=== PATIENT | female | born 1970 | race American Indian/Alaskan Native ===

== ENCOUNTER 2017-08-17 12:47 | Outpatient (CLI) | payer BC ==
--- NOTE | 2017-08-17 16:04 | Ultrasound Report ---
LEFT BREAST ULTRASOUND: 08/17/17 12:47:00 CLINICAL: The patient presented for an ultrasound guided biopsy of the lesion described to be at 3 o'clock 8 cm from the nipple. It was identified [facility] on 08/05/17 and I have those images for comparison. FINDINGS: Ultrasoundof the left breast demonstrated no mass, cyst or shadowing to correlate with the lesion described on the recent ultrasound at [facility]. The breast was scanned from 12 o'clock to 6 o'clock. A biopsy was not performed. IMPRESSION: Negative left breast ultrasound with no lesion to correlate with the lesion described to be at 3 o'clock 8 cm from the nipple. BI-RADS 3 - - Probably Benign RECOMMENDATION: Clinical followup and a repeat left mammogram and ultrasound of the left breast in six months.
== END 2017-08-17 12:48 | disposition home or self-care (01) ==
LOC: SPVWC 12:47
PROVIDERS: ATTEND Surgery
DX: R92.8 Other abnormal and inconclusive findings on diagnostic imaging of breast (principal)

== ENCOUNTER → 2018-01-18 | Outpatient (CLI) | payer BC ==
--- NOTE | 2018-01-18 16:43 | Mammography Report ---
LEFT DIGITAL DIAGNOSTIC MAMMOGRAM with CAD and LEFT BREAST ULTRASOUND: 01/18/18 14:52:00 CLINICAL: Followup of a lesion at 3 o'clock identified at [facility]. She presented for an ultrasound-guided needle biopsy 08/17/17 but we were unable to locate the lesion. COMPARISON:08/17/17 left breast ultrasound. No comparison mammogram is available. FINDINGS: The breast is mostly fatty. An oval partially circumscribed outer mass 7 cm from the nipple at the level of the nipple on the MLO view measures 1.7 x 0.8 x 1.5 cm.No other mass, architectural distortion or suspicious calcifications. Ultrasound of the outer left breast was performed and demonstrated a heterogeneous slightly irregular predominantly hypoechoic mass at 4 o'clock 5 cm from the nipple. It measures 7 x 9 x 3 mm. It has central echogenicity but the margins are not as sharp as usually seen with a lymph node. IMPRESSION: A 1.7 cm left breast mass at 3:30-4 o'clock. Recommend stereotactic biopsy. BI-RADS CATEGORY: 4--Suspicious ACR BI-RADS MAMMOGRAPHIC CODES: 0 = Needs additional imaging evaluation; 1 = Negative; 2 = Benign; 3 = Probably benign; 4 = Suspicious; 5 = Malignant; 6 = Known biopsy-proven malignancy COMMENT: 1. Dense breast tissue, i.e., adenosis, fibrocystic changes, etc., may obscure an underlying neoplasm. 2. Approximately 10% of cancers are not detected with mammography. 3. A negative mammography report should not delay biopsy if a clinically suspicious mass is present. COMMENT: Patient follow-up letters are generated by our [employer] [facility] application.
== END | disposition home or self-care (01) ==
LOC: SPVWC 14:52
PROVIDERS: ATTEND Surgery
DX: R92.8 Other abnormal and inconclusive findings on diagnostic imaging of breast (principal)

== ENCOUNTER 2018-01-24 13:30 | Outpatient (CLI) | payer BC ==
--- NOTE | 2018-01-25 08:05 | Mammography Report ---
STEREOTACTIC VACUUM ASSISTED BIOPSY WITH CLIP PLACEMENT LEFT: 01/24/18 13:30:00 CLINICAL: Lower outer mass. COMPARISON:01/18/18 FINDINGS: Consent for the procedure was obtained. The mass was targeted with stereotactic guidance. The skin was prepped with Betadine and anesthetized with 1% lidocaine. 2% lidocaine with epinephrine was injected for deeper anesthesia. 8 gauge Mammotome biopsy was performed from a CC from below approach through a small dermatotomy. Prefire and post-fire images demonstrated satisfactory positioning of the probe. Samples were obtained around the clock face. A specimen radiograph confirmed satisfactory sampling with removal of at least portions of a mass. A clip was deployed at the biopsy site and the placement was confirmed with a radiograph. The probe was removed and hemostasis was achieved with mild pressure. A sterile dressing was applied. The patient tolerated the procedure well and there were no apparent complications. Two view mammogram demonstrated concordant position of the biopsy clip. IMPRESSION: Uncomplicated stereotactic biopsy with clip placement left breast.
== END 2018-01-24 13:31 | disposition home or self-care (01) ==
LOC: SPVWC 13:30
PROVIDERS: ATTEND Surgery
DX: N60.22 Fibroadenosis of left breast (principal)
CPT/HCPCS: 19081; 88305; A4648

== ENCOUNTER 2018-08-02 13:06 | Outpatient (CLI) | payer BC ==
--- NOTE | 2018-08-02 13:33 | Mammography Report ---
Bilateral mammogram: Compared to 01/18/18 and 01/24/18. Right sided mammogram is not available for review. Findings: Predominance it this tissue bilaterally. Focal scarring upper outer left breast at site of previous biopsy. No microcalcification. Normal axilla. Focal 3 mm density upper outer right breast and lower right breast. Impression: Focal densities right breast. Recommend spot compression and sonographic examination. BI-RADS CATEGORY: 0 = Needs additional imaging evaluation ACR BI-RADS MAMMOGRAPHIC CODES: 0 = Needs additional imaging evaluation; 1 = Negative; 2 = Benign; 3 = Probably benign; 4 = Suspicious; 5 = Malignant; 6 = Known biopsy-proven malignancy COMMENT: 1. Dense breast tissue, i.e., adenosis, fibrocystic changes, etc., may obscure an underlying neoplasm. 2. Approximately 10% of cancers are not detected with mammography. 3. A negative mammography report should not delay biopsy if a clinically suspicious mass is present. COMMENT: Patient follow-up letters are generated in [employer].
== END 2018-08-02 13:07 | disposition home or self-care (01) ==
LOC: SPVWC 13:06
PROVIDERS: ATTEND Surgery
DX: Z12.31 Encounter for screening mammogram for malignant neoplasm of breast (principal)
CPT/HCPCS: 77067

== ENCOUNTER 2018-08-09 12:26 | Outpatient (CLI) | payer BC ==
--- NOTE | 2018-08-09 13:42 | Ultrasound Report ---
RIGHT DIGITAL DIAGNOSTIC MAMMOGRAM : 08/09/18 12:26:00 CLINICAL: Recalled for asymmetries. COMPARISON:08/02/18 screening FINDINGS: Additional right mammographic views were performed. A partially circumscribed low or outer periareolar asymmetry persists but other asymmetries have disappeared. Ultrasound of the lower outer right breast demonstrated an oval solid heterogeneous mixed echogenicity mass at 8 o'clock 4 cm from the nipple. It is superficial and measures 8 x 6 x 5 mm. The mass correlates with the mammographic density. IMPRESSION: A probably benign 8mm right breast mass at 8 o'clock 4 cm from the nipple.Sonographic and mammographic characteristics just benign fibroadenoma. BI-RADS CATEGORY: 3 - - Probably Benign RECOMMENDATION: 6 month followup targeted right breast ultrasound and mammogram if needed. ACR BI-RADS MAMMOGRAPHIC CODES: 0 = Needs additional imaging evaluation; 1 = Negative; 2 = Benign; 3 = Probably benign; 4 = Suspicious; 5 = Malignant; 6 = Known biopsy-proven malignancy COMMENT: 1. Dense breast tissue, i.e., adenosis, fibrocystic changes, etc., may obscure an underlying neoplasm. 2. Approximately 10% of cancers are not detected with mammography. 3. A negative mammography report should not delay biopsy if a clinically suspicious mass is present. COMMENT: Patient follow-up letters are generated via our [employer] application.
== END 2018-08-09 12:27 | disposition home or self-care (01) ==
LOC: SPVWC 12:26
PROVIDERS: ATTEND Surgery
DX: R92.8 Other abnormal and inconclusive findings on diagnostic imaging of breast (principal)

== ENCOUNTER 2019-02-14 13:30 | Outpatient (CLI) | payer BC ==
--- NOTE | 2019-02-15 11:21 | Ultrasound Report ---
RIGHT DIGITAL DIAGNOSTIC MAMMOGRAM WITH CAD -- 02/14/2019 RIGHT LIMITED BREAST ULTRASOUND INDICATION: 6 month follow-up of a probably benign nodule. TECHNIQUE: Digital right mammographic imaging was performed. Spot compression views were obtained. T his examination was interpreted with the benefit of Computer-Aided Detection (CAD) analysis. COMPARISON: 08/09/2018 FINDINGS: Breast Density: There are scattered areas of fibroglandular density. MAMMOGRAPHIC FINDINGS: There is no evidence of dominant mass, suspicious calcifications or architectu ral distortion in the right breast. The previously identified circumscribed periareolar nodule is les s prominent. ULTRASOUND FINDINGS: Targeted ultrasound evaluation was performed of the area of interest. The prev iously described. Official heterogeneous hypoechoic circumscribed mass at 8:00 4 cm from the nipple i s slightly smaller and measures 7 x 5 x 5 mm. No suspicious features. IMPRESSION: A benign right breast mass at 8:00 4 cm from the nipple. Recommend routine mammographic s creening. Follow up recommendation: Back to schedule. BI-RADS Category 2: Benign. A "normal" or negative report should not discourage follow up or biopsy of a clinically significant f inding. A written summary of these findings will be mailed to the patient. The patient will be entered into a mammography reporting system which will generate a reminder letter for the patient's next appointmen t at the appropriate interval. According to the [employer], yearly mammograms are recommended starting at age 40 and continuing as long as a woman is in good health. Breast MRI is recommended for women with an christopher roximately 20-25% or greater lifetime risk of breast cancer, including women with a strong family his tory of breast or ovarian cancer and women who have been treated for Hodgkin's disease. Signer Name: Ricky Krueger MD Signed: 02/15/2019 11:16 AM Workstation Name: [id number]
== END 2019-02-14 13:31 | disposition home or self-care (01) ==
LOC: SPVWC 13:30
PROVIDERS: ATTEND Surgery
DX: N63.13 Unspecified lump in the right breast, lower outer quadrant (principal)

== ENCOUNTER 2019-10-03 13:43 | Outpatient (CLI) | payer BC ==
--- NOTE | 2019-10-03 17:24 | Mammography Report ---
DIGITAL SCREENING MAMMOGRAM WITH CAD, 10/03/2019 INDICATION: Routine screening mammography. TECHNIQUE: Digital bilateral 2D mammography was obtained in the craniocaudal and mediolateral obliq ue projections. This examination was interpreted with the benefit of Computer-Aided Detection analysi s. COMPARISON: Prior mammograms 02/14/2019, 08/09/2018, 08/02/2018, and 01/18/2018 FINDINGS: Breast Density: There are scattered areas of fibroglandular density. There is no evidence of dominant mass, suspicious calcifications or architectural distortion in eithe r breast. There is a stable biopsy clip with associated focal asymmetric density seen in the lateral left breast, and a stable biopsy clip seen in the right breast. There has been no significant change compared with the prior examinations. IMPRESSION: Follow up recommendation: Routine yearly BI-RADS Category 2: Benign. A "normal" or negative report should not discourage follow up or biopsy of a clinically significant f inding. A written summary of these findings will be mailed to the patient. The patient will be entered into a mammography reporting system which will generate a reminder letter for the patient's next appointmen t at the appropriate interval. The [employer] recommends yearly mammograms starting at age 40 and continuing as l an as a woman is in good health. Breast MRI is recommended for women with an approximate 20-25% or greater lifetime risk of breast cancer, including women with a strong family history of breast or ova sudha cancer or who have been treated for Hodgkin's disease. Signer Name: Miriam Arteaga MD Signed: 10/03/2019 5:20 PM Workstation Name: [id number]
== END 2019-10-03 13:44 | disposition home or self-care (01) ==
LOC: SPVWC 13:43
PROVIDERS: ATTEND Surgery
DX: Z12.31 Encounter for screening mammogram for malignant neoplasm of breast (principal); Z98.890 Other specified postprocedural states
CPT/HCPCS: 77067

== ENCOUNTER 2020-10-10 08:19 | Outpatient (CLI) | payer BC ==
--- NOTE | 2020-10-11 12:06 | Mammography Report ---
DIGITAL SCREENING MAMMOGRAM WITH TOMOSYNTHESIS WITH CAD, 10/10/2020 CLINICAL INFORMATION / INDICATION: Screening TECHNIQUE: Digital bilateral 2D and 3D mammography with tomosynthesis was obtained in the craniocaud al and mediolateral oblique projections. Computer-Aided Detection (CAD) analysis was used for interp retation of this study. COMPARISON: 10/03/2019 FINDINGS: Breast Density: There are scattered areas of fibroglandular density. No dominant mass, suspicious calcifications, or architectural distortion in either breast. Bilateral biopsy changes are again seen. Mild bilateral nodularity is not significantly changed. IMPRESSION: No mammographic evidence of malignancy. Follow up recommendation: Routine yearly BI-RADS Category 2: Benign. A "normal" or negative report should not discourage follow up or biopsy of a clinically significant f inding. A written summary of these findings will be mailed to the patient. The patient will be entered into a mammography reporting system which will generate a reminder letter for the patient's next appointmen t at the appropriate interval. The [employer] recommends yearly mammograms starting at age 40 and continuing as l an as a woman is in good health. Breast MRI is recommended for women with an approximate 20-25% or greater lifetime risk of breast cancer, including women with a strong family history of breast or ova sudha cancer or who have been treated for Hodgkin's disease. Signer Name: Alejo Montes De Oca MD Signed: 10/11/2020 12:01 PM Workstation Name: [id number]
== END 2020-10-10 08:20 | disposition home or self-care (01) ==
LOC: SPVWC 08:19
PROVIDERS: ATTEND Surgery
DX: Z12.31 Encounter for screening mammogram for malignant neoplasm of breast (principal)
CPT/HCPCS: 77063; 77067